=== PATIENT | female | born 1995 | race African-American/Black ===

== ENCOUNTER 2016-05-04 15:57 | Emergency (ER) | payer MEDICAID ==
[~2016-05-04] VITALS: Ht 157.5 cm; Wt 49.0 kg
[2016-05-04 16:45] VITALS: BP 112/69
== END 2016-05-04 17:10 | disposition home or self-care (01) ==
LOC: ER 16:00
DX: R07.89 Other chest pain (principal); M54.9 Dorsalgia, unspecified